=== PATIENT | female | born 1970 | race African-American/Black ===

== ENCOUNTER 2020-04-06 03:33 | Emergency (ER) | payer OTHER, SELFPAY ==
[2020-04-06 03:37] VITALS: BP 185/93; PULSE 95; RESP 16; TEMP 36.6; O2SAT 100
--- NOTE | 2020-04-06 04:06 | ED.EXTPRO ---
HPI - Extremity Problem General Chief complaint: Extremity Problem,Nontraumatic Stated complaint: rt leg/knee Time Seen by Provider: 04/06/20 03:58 Source: patient Mode of arrival: ambulatory Limitations: no limitations History of Present Illness HPI Narrative: Patient is a 49-year-old female complaining of right leg pain, 6 out of 10, described as dull ache, worse with ambulation movement, started yesterday. Patient denies any injury to the area. Patient denies any chest pain, shortness of breath, fever or chills. Denies any recent travel. Denies any long period of immobilization. Related Data Allergies Allergy/AdvReac Type Severity Reaction Status Date / Time No Known Allergies Allergy Verified 04/06/20 04:06 Review of Systems Review of Systems: All systems reviewed & are unremarkable except as noted in HPI and below Constitutional: Constitutional: Denies body ache(s), Denies chills, Denies excessive sweating, Denies fatigue, Denies fever(s), Denies headache(s), Denies lethargy, Denies malaise, Denies weakness and Denies weight loss Eyes: Eyes: Denies blurry vision, Denies change in vision and Denies loss of vision ENT: Denies dizziness, Denies ear discharge, Denies headache(s), Denies lip swelling, Denies epistaxis, Denies nasal congestion, Denies neck pain, Denies throat swelling and Denies tongue swelling Cardiovascular: Cardiovascular: Denies chest pain, Denies chest pain at rest, Denies chest pain with activity, Denies diaphoresis, Denies rapid heart rate, Denies edema, Denies irregular heart rhythm, Denies lightheadedness, Denies palpitations, Denies dyspnea and Denies dyspnea on exertion Respiratory: Respiratory: Denies chest congestion, Denies cough, Denies hemoptysis, Denies dyspnea and Denies dyspnea on exertion Gastrointestinal: Gastrointestinal: Denies abdominal pain, Denies melena, Denies hematochezia, Denies diarrhea, Denies nausea, Denies vomiting and Denies hematemesis Musculoskeletal: Musculoskeletal: Denies abnormal gait, Denies deformity, Denies joint swelling, Denies limited range of motion, Denies neck pain and Denies numbness Neurologic: Denies Abnormal speech present, Denies abnormal gait, Denies confusion, Denies dizziness, Denies headache(s), Denies focal weakness, Denies loss of vision, Denies numbness, Denies Other visual disturbances, Denies Sensory deficit (Neuro) and Denies weakness Psychiatric: Psychiatric: Denies confusion, Denies depression, Denies auditory hallucinations, Denies homicidal ideation and Denies suicidal ideation Endocrine: Endocrine: Denies cold intolerance, Denies excessive sweating, Denies fatigue, Denies heat intolerance and Denies palpitations Hematologic/Lymphatic: Hematologic/Lymphatic: Denies easy bleeding and Denies easy bruising Allergic/Immunologic: Allergic/Immunologic: Denies lip swelling, Denies throat swelling and Denies tongue swelling Exam Const: General: cooperative, healthy appearing, comfortable, no acute distress, well developed, alert and awake; No confusion Orientation/consciousness: oriented to person, oriented to place, oriented to time, patient oriented x3 and No confusion Limitations: no limitations HENMT: Head: normal to inspection, normocephalic and atraumatic Ears: hearing grossly normal bilaterally, TM normal on the right and TM normal on the left General nose exam: Normal external nose present, Normal nares present and No nasal discharge present Face and sinus: normal facial exam Mouth: Yes Normal oral and palatal mucosa present, Yes lip normal, Yes tongue normal and Yes oropharynx normal Throat: posterior oropharynx normal, tonsils normal and uvula midline Eyes: General: appearance normal, both eyes and all related structures Pupils: Equal, round and reactive pupils present EOM: EOMs intact bilaterally Neck: Neck: normal visual inspection, full ROM, no lymphadenopathy and no meningeal signs Chest: Chest palpation & inspection: normal inspecti
[2020-04-06] MEDS: KETOROLAC (*BKC) 60 MG/2 ML VIAL IM (04:16)
[2020-04-06] MEDS: CYCLOBENZAPRINE HCL 10 MG TABLET PO (04:16)
[2020-04-06 04:18] VITALS: BP 153/95; PULSE 87; RESP 16; O2SAT 100
== END 2020-04-06 04:25 | disposition home or self-care (01) ==
PROVIDERS: Emergency Provider Emergency Medicine; PCP Internal Medicine Infectious Disease
DX: M79.604 Pain in right leg (principal)
CPT/HCPCS: 96372; 99283; A9270; J1885

== ENCOUNTER 2020-04-06 11:52 | Outpatient (CLI) | payer OTHER, SELFPAY ==
--- NOTE | ~2020-04-06 | US_ITS ---
EXAMINATION: US venous doppler LE RT EXAM DATE: 04/06/2020 12:20 INDICATION: Right leg pain. TECHNIQUE: Multiple grayscale, color flow and Doppler images of the right lower extremity deep venous system were obtained and reviewed. There is no prior study for comparison. FINDINGS: The right common femoral, femoral and profunda veins demonstrate normal color flow, respira tory variation, augmentation and compressibility. Compressibility, color flow confirmed within the r ight popliteal, posterior tibial, and greater saphenous veins. Peroneal not visualized. IMPRESSION: 1. No evidence of right lower extremity deep venous thrombosis. Reviewed, dictated and finalized at location A. [employer]
== END 2020-04-06 11:53 | disposition home or self-care (01) ==
PROVIDERS: PCP Internal Medicine Infectious Disease; Visit Provider Emergency Medicine
DX: M79.661 Pain in right lower leg (principal)
CPT/HCPCS: 93971; 96372; 99283; A9270; J1885

== ENCOUNTER 2022-05-23 16:20 | Emergency (ER) | payer OTHER, SELFPAY ==
--- NOTE | ~2022-05-23 | XR_ITS ---
XR chest 2V 05/23/2022 18:40 Indication: Shortness of breath Procedure: 2 view chest Comparison: No prior studies for comparison. Findings: Heart size normal. There are scant left basilar atelectasis. Right lung clear. No focal pne umonia, edema or pneumothorax. No acute osseous abnormality. Impression: 1: Left basilar atelectasis. Reviewed, dictated and finalized at location A. Impression: 1: Left basilar atelectasis.
--- NOTE | ~2022-05-23 | CT_ITS ---
EXAMINATION: CT cervical spine wo con DATE: 05/23/2022 18:37 INDICATION: Midline tenderness by examination. Left arm and shoulder pain. TECHNIQUE: Computed tomography (CT) of the cervical spine was performed without intravenous contrast. The dose-length product was 561 mGy-cm. Automated exposure control and iterative reconstruction tech D and K interprisesque were employed. COMPARISON: None FINDINGS: There is reversal of cervical lordosis. There is degenerative disc disease at C4-5, C5-6, C 6-7 and C7-T1. There are ventral osteophytes at these levels. Craniovertebral junction is unremarkabl e. No odontoid process is normal. Vertebral body heights are maintained. Spinous processes are intact . No evidence for perched facet. There is moderate multilevel uncinate hypertrophy. There is mild ericka ateral neuroforaminal narrowing at C5-6 and mild right neural foraminal narrowing at C6-7. IMPRESSION: 1. No acute abnormality of the cervical spine. 2: Moderate cervical spondylosis. Reviewed, dictated and finalized at location A.
[2022-05-23 16:45] VITALS: BP 157/80; PULSE 108; RESP 16; TEMP 36.9; O2SAT 100
--- NOTE | 2022-05-23 18:24 | ECG_ITS ---
Measurements Intervals [place] Rate: 78 P: 52 ND: 142 QRS: -7 QRSD: 79 T: 12 QT: 379 QTc: 433 Interpretive Statements SINUS RHYTHM NO PREVIOUS ECG AVAILABLE FOR COMPARISON Electronically Signed On 05-24-2022 15:42:01 CDT by Daniel Moise M.D.
--- NOTE | 2022-05-23 18:29 | ED.EXTPRO ---
HPI - Extremity Problem General Chief complaint: Extremity Problem,Nontraumatic Stated complaint: my left side of my body hurts x1 week Time Seen by Provider: 05/23/22 18:15 History of Present Illness HPI Narrative: Patient is a 51-year-old female here for evaluation of left upper extremity pain x1 week. Patient states that the pain originates in her neck and shoots down into her hand, triggered with movement of the neck. She has taken Tylenol without relief of her pain. She had a pain in her chest last week that has since resolved, no further chest pain since. Patient tells me she does not remember the quality of the chest pain but it lasted for seconds before resolving. No cough, congestion, shortness of breath, fevers or chills, nausea or vomiting, unilateral weakness. She had no trauma to her neck. Related Data Allergies Allergy/AdvReac Type Severity Reaction Status Date / Time No Known Allergies Allergy Verified 04/06/20 04:06 Review of Systems Review of Systems: Gen.: Denies fevers or chills Eyes: Denies eye pain or visual change ENT: Denies congestion Respiratory: Denies shortness of breath or cough CV: Denies chest pain or palpitations GI: Denies abdominal pain nausea, emesis or diarrhea denies burning, urgency, frequency or hematuria Musculoskeletal: reports LUE pain and neck pain Neuro: Denies numbness, tingling, weakness or focal weakness Skin: Denies rash Except as documented, all other systems reviewed and negative Exam Narrative: APPEARANCE: Well appearing, no pain in distress, well-nourished. Head: Normocephalic and atraumatic. EYES: PERRLA/EOMI, conjunctivae clear NOSE: No nasal drainage EARS: External ear normal in appearance THROAT: Oropharynx is clear. Mucous membranes are moist. NECK: Spurling's test is positive. Supple. No adenopathy, no masses. RESPIRATORY: Airway patent, respirations nonlabored. Clear to auscultation bilaterally, no rales, rhonchi, wheezing. CARDIOVASCULAR: Regular rate and rhythm without murmurs, rubs, or gallops. ABDOMINAL: Normoactive bowel sounds. Soft, nontender, nondistended. No rebound tenderness or guarding. MUSCULOSKELETAL: Spurling's test is positive. No midline tenderness to C, T or L-spine. No tenderness to palpation along the bilateral clavicles, humerus, olecranon or hands. 5/5 strength in bilateral hands. Extremities are warm and well-perfused. Moves all extremities well. No edema. NEURO: Normal speech. No focal neurologic deficits. SKIN: Skin is warm and dry. No rashes. PSYCHIATRIC: Normal affect/mood. Course Vital Signs Vital signs: Vital Signs Temperature 98.4 F 05/23/22 16:45 Pulse Rate 108 H 05/23/22 16:45 Respiratory Rate 16 05/23/22 16:45 Blood Pressure 157/80 H 05/23/22 16:45 Pulse Oximetry 100 05/23/22 16:45 Oxygen Delivery Room Air 05/23/22 16:45 Temperature 98.4 F 05/23/22 16:45 Pulse Rate 108 H 05/23/22 16:45 Respiratory Rate 16 05/23/22 16:45 Blood Pressure 157/80 H 05/23/22 16:45 Pulse Oximetry 100 05/23/22 16:45 Oxygen Delivery Room Air 05/23/22 16:45 MDM - Extremity (Nontraumatic) MDM Narrative Medical decision making narrative: 51-year-old female here for evaluation of neck pain that shoots down her left upper extremity for the past week, associated with movement of the head. She did have a pain in her chest last week that resolved without intervention, none since. She is nontoxic in appearance, slight tachycardia upon presentation resolved by time of evaluation. Spurling's test is positive, she has no midline tenderness to palpation of the neck, no weakness in the hands or bony tenderness elsewhere. Likely cervical stenosis. EKG and troponin are nonischemic. Basic labs unremarkable. CT of the neck shows spondylosis; chest x-ray is clear aside from atelectasis in the left base. Patient feeling improved after Toradol. Will discharge home to follow-up with neurosurgery. We discussed retu
[2022-05-23 18:48] LABS: Basophils Absolute Auto 0.1 K/mm3 (0.0-0.1); Basophils Percent Auto 0.7 % (0.2-1.2); Eosinophils Absolute Auto 0.1 K/mm3 (0-0.3); Hematocrit 32.4 % (37.0-47.0); Hemoglobin 11.3 g/dL (12.0-15.0); Immature Granulocyte Absolute 0.02 K/mm3 (0.00-0.031); Immature Granulocyte Percent A 0.2 % (0-0.5); Lymphocytes Absolute Auto 2.72 K/mm3 (0.9-3.2); Lymphocytes Percent Auto 26.3 % (18.3-44.2); Mean Corpuscular HGB Conc 34.9 g/dl (32-36); Mean Corpuscular Hemoglobin 27.4 pg (26-34); Mean Corpuscular Volume 78.5 fl (80-100); Monocytes Absolute Auto 0.9 K/mm3 (0.1-0.6); Monocytes Percent Auto 8.2 % (2.6-8.5); Neutrophils Absolute Auto 6.6 K/mm3 (1.3-6.7); Neutrophils Percent Auto 63.6 % (45.5-73.1); Platelet Count Result 214 k/mm3 (150-375); Red Blood Count 4.13 M/mm3 (4.2-5.4); Red Cell Distribution Width 15.5 % (11.5-14.5); White Blood Count 10.3 K/mm3 (4.5-10.0)
[2022-05-23] MEDS: KETOROLAC 30 MG/ML VIAL (*BKC) IM (18:56)
[2022-05-23 18:59] LABS: Anion Gap 9 mmol/L (8-16); Blood Urea Nitrogen 16 mg/dL (7-17); Calcium 9.9 mg/dL (8.4-10.2); Carbon Dioxide 25 mmol/L (22-30); Chloride 104 mmol/L (98-107); Estimated CRCL calculation 82 ml/min; Estimated Glomerular Filt Rate > 60; Glucose 100 mg/dL (65-110); Potassium 4.6 mmol/L (3.4-5.0); Sodium 138 mmol/L (137-145)
[2022-05-23 19:11] LABS: Troponin I < 0.012 ng/mL (0.000-0.034)
== END 2022-05-23 19:53 | disposition home or self-care (01) ==
PROVIDERS: Emergency Provider Physician Assistant; PCP Internal Medicine Infectious Disease
DX: M48.02 Spinal stenosis, cervical region (principal); M47.812 Spondylosis without myelopathy or radiculopathy, cervical region
CPT/HCPCS: 36415; 71046; 72125; 80048; 84484; 85025; 93005; 96372; 99284; J1885